=== PATIENT | female | born 1975 | race Caucasian/White ===

== ENCOUNTER 2017-01-13 13:21 | Emergency (ER) | payer SELFPAY ==
[2017-01-13] MEDS ORDERED: KETOROLAC 60 MG/2 ML VIAL IM STA (14:18)
[2017-01-13] MEDS ORDERED: DEXAMETHASONE 10 MG/ML VIAL PO STA (14:18)
[2017-01-13] MEDS ORDERED: KETOROLAC 60 MG/2 ML VIAL ONE (14:21)
[2017-01-13] MEDS ORDERED: DEXAMETHASONE 10 MG/ML VIAL ONE (14:21)
[2017-01-13] MEDS ORDERED: CHERRY SYRUP 10 ML UDC PO ONE (14:21)
[2017-01-13] MEDS ORDERED: CYCLOBENZAPRINE 10 MG TABLET PO STA (16:30)
[2017-01-13] MEDS ORDERED: CYCLOBENZAPRINE 10 MG TABLET PO ONE (16:36)
[2017-01-13] MEDS ORDERED: oxyCOD/ACETAMIN 5 MG/325 MG TABLET PO STA (17:14)
[2017-01-13] MEDS ORDERED: oxyCOD/ACETAMIN 5 MG/325 MG TABLET PO ONE (17:27)
== END 2017-01-13 17:39 | disposition home or self-care (01) ==
DX: S39.012A Strain of muscle, fascia and tendon of lower back, initial encounter (principal); W01.0XXA Fall on same level from slipping, tripping and stumbling without subsequent striking against object, initial encounter; R03.0 Elevated blood-pressure reading, without diagnosis of hypertension; G89.29 Other chronic pain
CPT/HCPCS: 72100; 96372; 99283; A9270